=== PATIENT | female | born 2000 | race Caucasian/White ===

== ENCOUNTER 2021-09-14 19:00 | Emergency (ER) | payer BC, MEDICAID ==
[2021-09-14] MEDS ORDERED: methylPREDNISolone Sodium Succinate 125 MG/2 ML SDV IVPUSH ONE (19:28)
[2021-09-14] MEDS ORDERED: Sodium Chloride 0.9% 1,000 ML IV ONE (19:28)
[2021-09-14 20:05] LABS: BLOOD UREA NITROGEN,BUN 7 mg/dL (7.0-18.0); CARBON DIOXIDE,CO2 25.2 mmol/L (21.0-32.0); CHLORIDE,CL 102 mmol/L (98-107); GLUCOSE RANDOM 93 mg/dL (74-106); POTASSIUM,K 3.7 mmol/L (3.5-5.1); SODIUM,NA 140 mmol/L (136-145)
[2021-09-14 20:22] LABS: CORONAVIRUS COVID-19 NAA NEGATIVE (NEGATIVE); INFLUENZA A NAA NEGATIVE (NEGATIVE); INFLUENZA B NAA NEGATIVE (NEGATIVE)
[2021-09-14] MEDS ORDERED: Iopamidol 755 MG/ML 500 ML Multipack Bottle IVPUSH STA (20:50)
== END 2021-09-14 21:59 | disposition home or self-care (01) ==
LOC: MW.ED 19:00
DX: R07.0 Pain in throat (principal); Z79.899 Other long term (current) drug therapy; Z20.822 Contact with and (suspected) exposure to COVID-19
CPT/HCPCS: 0240U; 36415; 70450; 70491; 80053; 84703; 85025; 86140; 87651; 96374; 99284; J2930; J7030; Q9967

== ENCOUNTER 2021-11-12 11:49 | Emergency (ER) | payer BC, MEDICAID ==
[2021-11-12] MEDS ORDERED: Sodium Chloride 0.9% 1,000 ML IV ONE ×2 (12:18→12:49)
[2021-11-12] MEDS ORDERED: Sodium Chloride 0.9% 10 ML Syringe FLUSH PRN (12:18)
[2021-11-12] MEDS ORDERED: Sodium Chloride 0.9% 2.5 ML Syringe FLUSH PRN (12:18)
[2021-11-12 13:30] LABS: BLOOD UREA NITROGEN,BUN 10 mg/dL (7.0-18.0); CARBON DIOXIDE,CO2 22.4 mmol/L (21.0-32.0); CHLORIDE,CL 105 mmol/L (98-107); GLUCOSE RANDOM 125 mg/dL (74-106); POTASSIUM,K 3.7 mmol/L (3.5-5.1); SODIUM,NA 141 mmol/L (136-145)
[2021-11-12 13:45] LABS: ESTIMATED GFR 128 mL/min (>60)
[2021-11-12] MEDS ORDERED: Iopamidol 755 MG/ML 500 ML Multipack Bottle IVPUSH STA (15:20)
[2021-11-12 16:27] LABS: C. TRACHOMATIS BY PCR NOT DETECTED; N. GONORRHOEAE BY PCR NOT DETECTED
== END 2021-11-12 16:20 | disposition home or self-care (01) ==
LOC: MW.ED 11:49
DX: R55 Syncope and collapse (principal); R91.1 Solitary pulmonary nodule; Z20.822 Contact with and (suspected) exposure to COVID-19
CPT/HCPCS: 36415; 71046; 71275; 80053; 81003; 81025; 83735; 84443; 84484; 85025; 87491; 87591; 87635; 93005; 96360; 99284; J3490; J7030; Q9967; 93010; U0002

== ENCOUNTER 2021-11-18 07:36 | Emergency (ER) | payer BC ==
[2021-11-18] MEDS ORDERED: Sodium Chloride 0.9% 10 ML Syringe FLUSH PRN (08:03)
[2021-11-18] MEDS ORDERED: Sodium Chloride 0.9% 2.5 ML Syringe FLUSH PRN (08:03)
[2021-11-18] MEDS ORDERED: Lactated Ringers 1,000 ML IV ONE (08:03)
[2021-11-18 08:38] LABS: CARBON DIOXIDE,CO2 21.9 mmol/L (21.0-32.0); POTASSIUM,K 3.9 mmol/L (3.5-5.1)
== END 2021-11-18 10:22 | disposition home or self-care (01) ==
LOC: MW.ED 07:36
DX: F15.23 Other stimulant dependence with withdrawal (principal); E86.0 Dehydration; Z20.822 Contact with and (suspected) exposure to COVID-19
CPT/HCPCS: 36415; 80048; 83735; 84484; 84703; 85025; 87635; 93005; 96360; 99284; J3490; J7120; 93010; U0002